=== PATIENT | male | born 1990 | race Two or more races ===

== ENCOUNTER 2022-10-01 08:10 | Outpatient (CLI) | payer OTHER | END 2022-10-01 08:18 | disposition home or self-care (01) | LOC: SONOGRAMA 08:10 | PROVIDERS: ATTEND General Practice | DX: N03.9 Chronic nephritic syndrome with unspecified morphologic changes (principal) ==

== ENCOUNTER 2023-03-18 09:21 | Outpatient (CLI) | payer OTHER | END 2023-03-18 09:26 | disposition home or self-care (01) | LOC: MRI 09:21 | PROVIDERS: ATTEND Otolaryngology | DX: H90.42 Sensorineural hearing loss, unilateral, left ear, with unrestricted hearing on the contralateral side (principal) | CPT/HCPCS: 70553 ==

== ENCOUNTER 2023-07-26 14:32 | Outpatient (CLI) | payer OTHER | END 2023-07-26 14:38 | disposition home or self-care (01) | LOC: RAD 14:32 | DX: M54.2 Cervicalgia (principal); M54.50 Low back pain, unspecified; M54.6 Pain in thoracic spine ==

== ENCOUNTER 2023-11-24 11:53 | Emergency (ER) | payer OTHER ==
[~2023-11-24] VITALS: Ht 172.7 cm; Wt 91.6 kg
[2023-11-24] MEDS ORDERED: PEPCID AC20 MG PO (12:16)
[2023-11-24] MEDS ORDERED: SIMVASTATIN5 MG PO (12:16)
[2023-11-24] MEDS ORDERED: COZAAR100 MG PO (12:16)
[2023-11-24] MEDS ORDERED: 0.9 % SODIUM CHLORIDE 1,000 ML IV STA (12:33)
[2023-11-24 14:22] LABS: MEAN CELL VOLUME 87.9 fL (80.0-100.00); MEAN CORPUSCULAR HGB CONC 34.1 g/dl (32.0-36.0); PLATELET COUNT 257 K/uL (150-450); RED BLOOD COUNT 4.67 M/uL (4.00-6.00); RED CELL DISTRIBUTION WIDTH 13.6 % (11.5-14.5)
[2023-11-24 14:35] LABS: URINE APPEARANCE Clear; URINE BILIRRUBIN Negative (NEGATIVE); URINE BLOOD Negative; URINE COLOR Yellow; URINE GLUCOSE Negative (NEGATIVE); URINE LEUKOCYTE Negative; URINE NITRATE Negative; URINE PROTEIN Trace (NEGATIVE); URINE UROBILINOGEN 0.2 E.U./dl
[2023-11-24 14:38] LABS: URINE BACTERIA 20.1 uL (0.0-1933); URINE RBC 9.9 uL (0.0-20.8)
[2023-11-24 14:40] LABS: URINE EPITHELIAL CELLS 0.7 uL (0.0-38.8)
[2023-11-24 14:50] LABS: CALCIUM 9.5 mg/dL (8.5-10.1); CREATININE SERUM 0.87 mg/dL (0.70-1.30); GFR 101.69; POTASSIUM 3.86 mEq/L (3.5-5.1)
== END 2023-11-24 16:22 | disposition home or self-care (01) ==
LOC: ER 11:54
PROVIDERS: Emergency Medicine
DX: K52.89 Other specified noninfective gastroenteritis and colitis (principal); I10 Essential (primary) hypertension; Z20.822 Contact with and (suspected) exposure to COVID-19